=== PATIENT | female | born 1990 | race Caucasian/White ===

== ENCOUNTER 2024-10-14 09:19 | Outpatient (CLI) | payer OTHER | END 2024-10-14 09:29 | disposition home or self-care (01) | LOC: SONOGRAMA 09:19 | PROVIDERS: ATTEND General Practice | DX: N93.9 Abnormal uterine and vaginal bleeding, unspecified (principal) ==

== ENCOUNTER 2024-12-22 06:27 | Day surgery (SDC) | payer OTHER ==
[2024-12-15 09:41] LABS: URINE APPEARANCE Clear; URINE BILIRRUBIN Negative (NEGATIVE); URINE BLOOD Negative; URINE COLOR Yellow; URINE GLUCOSE Negative (NEGATIVE); URINE KETONE Negative (NEGATIVE); URINE LEUKOCYTE Negative; URINE NITRATE Negative; URINE PROTEIN Negative (NEGATIVE); URINE UROBILINOGEN 0.2 E.U./dl
[2024-12-15 09:42] LABS: URINE BACTERIA 118.6 uL (0.0-1933); URINE EPITHELIAL CELLS 4.3 uL (0.0-38.8); URINE RBC 2.0 uL (0.0-20.8)
[2024-12-15 09:43] LABS: BASO % 0.8 % (0.1-1.2); EOS # 0.22 (0.04-0.54); EOS % 4.5 % (0.7-7.0); LYMPH # 1.55 (1.18-3.74); LYMPH % 31.6 % (19.3-53.1); MEAN PLATELET VOLUME 10.10 fl (9.4-12.4); MONO # 0.51 (0.24-0.82); MONO % 10.4 % (4.7-12.5); NEUT # 2.57 (1.56-6.13); NEUT % 52.5 % (34.0-71.1); RED CELL DISTRIBUTION WIDTH 13.2 % (11.6-14.4)
[2024-12-15 09:47] LABS: URINE CAST 0.00 uL (0.0-1.40); URINE WBC 0.3 uL (0.0-23.2)
[2024-12-15 10:12] LABS: INR 1.05
[2024-12-15 10:55] LABS: ALT/SGPT 22.0 U/L (12-78); AST/SGOT 12.0 U/L (15-37); BILIRUBIN TOTAL 0.37 mg/dL (0.3-1.2); BUN CREA RATIO 17.0 (7.0-25.0); CREATININE SERUM 0.78 mg/dL (0.55-1.02); GFR 84.04; GLOBULINA 3.0 G/DL (2.4-3.5); GLUCOSE FASTING 82.0 mg/dL (65-100); OSMOLALITY SERUM 279.0 MOSM/KG (275-295)
[2024-12-22] MEDS ORDERED: RINGERS SOLUTION,LACTATED 1,000 ML IV SCH (10:15)
[2024-12-22] MEDS ORDERED: ONDANSETRON HCL 2 MG/ML VIAL IV PRN (10:15)
[2024-12-22] MEDS ORDERED: KETOROLAC TROMETHAMINE 30 MG VIAL IV ONE ×2 (10:15→11:15)
[2024-12-22] MEDS ORDERED: FAMOTIDINE/PF 20 MG/2 ML VIAL IV ONE (10:15)
== END 2024-12-22 15:50 | disposition home or self-care (01) ==
LOC: CIR.AMB 06:27
PROVIDERS: ATTEND General Practice
DX: N84.0 Polyp of corpus uteri (principal); N93.8 Other specified abnormal uterine and vaginal bleeding